=== PATIENT | male | born 1960 | race Two or more races ===

== ENCOUNTER 2021-01-09 05:18 | Emergency (ER) | payer OTHER ==
[2021-01-09] MEDS ORDERED: SODIUM CHLORIDE 0.9% 500 ML INFUS.BAG IV ONE (05:30)
[2021-01-09] MEDS ORDERED: ONDANSETRON 4 MG/2 ML VIAL IVPUSH PRN (05:30)
[2021-01-09] MEDS ORDERED: ONDANSETRON 4 MG/2 ML VIAL IVPUSH ONE (05:31)
[2021-01-09 05:32] VITALS: BMI 25.7
[2021-01-09] MEDS ORDERED: ONDANSETRON 4 MG/2 ML VIAL ONE (05:39)
[2021-01-09 05:48] LABS: BASO % 0.6 % (0-2.0); EOS % 1.4 % (0-4.5); HEMOGLOBIN 13.9 GM/dL (11.7-16.9); LYMPH % 48.4 % (8-40); MCH 26.2 pg (25.7-33.7); MCHC 33.1 g/dl (32.0-35.9); MEAN CELL VOLUME 79.3 fl (80-96); MEAN PLT VOLUME 9.6 fl (7.5-11.1); MONO % 7.2 % (3.8-10.2); NEUT % 42.4 % (42.8-82.8); PLATELET COUNT 218 K/MM3 (134-434); RBC 5.29 M/mm3 (4.00-5.60); RDW 14.5 % (11.9-15.9); WHITE BLOOD COUNT 8.2 K/mm3 (4.0-10.0)
[2021-01-09 06:15] LABS: CHLORIDE 107 mmol/L (98-107); POTASSIUM 4.4 mmol/L (3.5-5.1); SODIUM 137 mmol/L (136-145)
[2021-01-09 06:18] LABS: ALBUMIN 3.7 g/dl (3.4-5.0); ANION GAP 7 MMOL/L (8-16); BLOOD UREA NITROGEN 22.4 mg/dL (7-18); CO2 23 mmol/L (21-32); GLUCOSE,RANDOM 109 mg/dL (74-106); LIPASE 95 U/L (73-393)
[2021-01-09 06:19] LABS: MAGNESIUM 2.2 mg/dL (1.8-2.4)
[2021-01-09 06:21] LABS: SGOT/AST 39 U/L (15-37); SGPT/ALT 42 U/L (13-61)
[2021-01-09 06:23] LABS: BILIRUBIN,TOTAL 0.4 mg/dL (0.2-1); TOT PROT 7.4 g/dl (6.4-8.2)
[2021-01-09 06:24] LABS: ALK PHOS 88 U/L (45-117)
[2021-01-09] MEDS ORDERED: SODIUM CHLORIDE 0.9% 1000 ML INFUS.BAG IV ONE (10:42)
[2021-01-09] MEDS ORDERED: METOCLOPRAMIDE HCL INJECTION 10 MG/2 ML VIAL IVPB ONE (10:42)
[2021-01-09 10:54] VITALS: BP 199/110; PULSE 69; TEMP 98.5
== END 2021-01-09 11:44 | disposition home or self-care (01) ==
LOC: JER 05:18
PROC: 3E033GC Introduction of Other Therapeutic Substance into Peripheral Vein, Percutaneous Approach (ICD-10-PCS; principal; 2021-01-09)
DX: R11.2 Nausea with vomiting, unspecified (principal)
CPT/HCPCS: 36415; 74177-TC; 80053; 80307; 82550; 82553; 83605; 83690; 83735; 84484; 85025; 93005; 93010; 99285-25; Q9967

== ENCOUNTER 2024-09-12 07:15 | Inpatient (IN) | payer OTHER ==
[2024-09-12 09:27] LABS: INR 1.02 (0.83-1.09); PROTHROMBIN TIME (PATIENT) 11.5 SEC (9.7-13.0)
[2024-09-12 09:29] LABS: BASO % 0.6 % (0-2.0); EOS % 0.6 % (0-4.5); HEMATOCRIT 41.9 % (35.4-49); HEMOGLOBIN 13.4 GM/dL (11.7-16.9); LYMPH % 26.7 % (8-40); MCH 26.2 pg (25.7-33.7); MEAN CELL VOLUME 81.6 fl (80-96); MEAN PLT VOLUME 10.6 fl (7.5-11.1); MONO % 8.6 % (3.8-10.2); NEUT % 63.5 % (42.8-82.8); PLATELET COUNT 211 10^3/uL (134-434); RBC 5.13 M/mm3 (4.00-5.60); RDW 13.7 % (11.9-15.9); WHITE BLOOD COUNT 5.5 K/mm3 (4.0-10.0)
[2024-09-12 09:30] LABS: ACTIVATED PTT 35.4 SECONDS (25.2-36.5)
[2024-09-12 09:37] LABS: MAGNESIUM 2.3 mg/dL (1.8-2.4)
[2024-09-12 09:39] LABS: ALBUMIN 3.3 g/dl (3.4-5.0); BLOOD UREA NITROGEN 26.8 mg/dL (7-18); CALCIUM 9.3 mg/dL (8.5-10.1)
[2024-09-12 09:44] LABS: BILIRUBIN,TOTAL 0.5 mg/dL (0.2-1); TOT PROT 6.6 g/dl (6.4-8.2)
[2024-09-12 09:45] LABS: N-TERMINAL BNP 8546.4 pg/ml (5-125)
[2024-09-12] MEDS ORDERED: CEFTRIAXONE 1 G/50 ML PREMIX 50 ML IVPB ONE (11:25)
[2024-09-12] MEDS ORDERED: AZITHROMYCIN IVPB 500 MG/250 ML BAG IVPB ONE (11:26)
[2024-09-12] MEDS: CEFTRIAXONE 1,000 MG in DEXTROSE 5%-WATER - 50 ML IVPB ONE (11:29)
[2024-09-12] MEDS: AZITHROMYCIN IVPB 500 MG in DEXTROSE 5%-WATER - 250 ML IVPB ONE (11:59)
[2024-09-12] MEDS ORDERED: HEPARIN NA (PORCINE) 5,000 UNITS/ML 1ML VIAL ONE (14:23)
[2024-09-12] MEDS: HEPARIN NA (PORCINE) 5,000 UNITS/ML 1ML VIAL SQ SCH (14:31)
[2024-09-12 15:10] LABS: HIV INTERPRETATION NEGATIVE (NEGATIVE)
[2024-09-12] MEDS: FUROSEMIDE 40 MG/4 ML INJECTABLE VIAL IVPUSH ONE (15:44)
[2024-09-12] MEDS: LABETALOL HCL 5 MG/1 ML (100MG/20 ML VIAL) IVPUSH ONE ×2 (15:50→21:04)
[2024-09-12] MEDS: LABETALOL HCL 20 MG/4 ML VIAL IVPUSH ONE ×2 (15:53→21:18)
[2024-09-12 16:45] VITALS: BMI 23.8
[2024-09-13] MEDS: LABETALOL HCL 100 MG TABLET (FP) PO ONE (00:39)
[2024-09-13] MEDS: LABETALOL HCL 5 MG/1 ML (100MG/20 ML VIAL) IVPUSH ONE (03:41)
[2024-09-13] MEDS: amLODIPine BESYLATE 10 MG TABLET (FP) PO ONE (06:18)
[2024-09-13 07:04] LABS: HEMATOCRIT 39.8 % (35.4-49); HEMOGLOBIN 12.6 GM/dL (11.7-16.9); MCHC 31.8 g/dl (32.0-35.9); MEAN CELL VOLUME 81.9 fl (80-96); MEAN PLT VOLUME 10.6 fl (7.5-11.1); PLATELET COUNT 200 10^3/uL (134-434); RBC 4.85 M/mm3 (4.00-5.60); RDW 13.9 % (11.9-15.9)
[2024-09-13 07:23] LABS: POTASSIUM 3.5 mmol/L (3.5-5.1)
[2024-09-13 07:35] LABS: BLOOD UREA NITROGEN 21.3 mg/dL (7-18); MAGNESIUM 2.2 mg/dL (1.8-2.4)
[2024-09-13 07:39] LABS: PHOSPHOROUS 3.9 mg/dL (2.5-4.9)
[2024-09-13 07:40] LABS: BILIRUBIN,TOTAL 0.6 mg/dL (0.2-1); TOT PROT 5.9 g/dl (6.4-8.2)
[2024-09-13] MEDS: FUROSEMIDE 40 MG/4 ML INJECTABLE VIAL IVPUSH SCH (10:40)
[2024-09-13] MEDS: LOSARTAN POTASSIUM 50 MG TABLET PO SCH (10:40)
[2024-09-13] MEDS: LABETALOL HCL 200 MG TABLET (FP) PO SCH (10:40)
[2024-09-13] MEDS: PANTOPRAZOLE 40 MG TABLET PO SCH (12:03)
[2024-09-13 14:17] LABS: PH,URINE 6.5 (5.0-8.0); URINE APPEARANCE CLEAR; URINE BILIRUBIN NEGATIVE (NEGATIVE); URINE COLOR YELLOW; URINE GLUCOSE (UA) NEGATIVE (NEGATIVE); URINE KETONE NEGATIVE (NEGATIVE); URINE LEUK ESTERASE NEGATIVE (NEGATIVE); URINE NITRITE NEGATIVE (NEGATIVE); URINE PROTEIN NEGATIVE (NEGATIVE); URINE UROBILINOGEN 0.2 mg/dL (0.2-1.0)
[2024-09-13] MEDS: CEFTRIAXONE 1 G/50 ML PREMIX 50 ML IVPB SCH (19:07)
[2024-09-13] MEDS: hydrALAZINE HCL 20 MG/ML VIAL IVPUSH PRN (20:07)
[2024-09-13] MEDS: DOXYCYCLINE INJECTION 100 MG in DEXTROSE 5%-WATER 100 ML IVPB SCH (21:33)
[2024-09-13] MEDS: CARVEDILOL 25 MG TABLET (FP) PO SCH (21:34)
[2024-09-14] MEDS: ACETAMINOPHEN 500 MG TABLET (FP) PO ONE (07:12)
[2024-09-14 07:30] LABS: BASO % 0.4 % (0-2.0); EOS % 2.8 % (0-4.5); HEMATOCRIT 41.2 % (35.4-49); HEMOGLOBIN 13.5 GM/dL (11.7-16.9); LYMPH % 34.7 % (8-40); MCH 26.4 pg (25.7-33.7); MCHC 32.7 g/dl (32.0-35.9); MEAN CELL VOLUME 80.7 fl (80-96); MEAN PLT VOLUME 10.7 fl (7.5-11.1); MONO % 11.2 % (3.8-10.2); NEUT % 50.9 % (42.8-82.8); PLATELET COUNT 209 10^3/uL (134-434); RBC 5.11 M/mm3 (4.00-5.60); RDW 13.9 % (11.9-15.9); WHITE BLOOD COUNT 5.2 K/mm3 (4.0-10.0)
[2024-09-14 07:51] LABS: POTASSIUM 3.5 mmol/L (3.5-5.1)
[2024-09-14 08:00] LABS: MAGNESIUM 2.1 mg/dL (1.8-2.4)
[2024-09-14 08:03] LABS: CREATININE 1.9 mg/dL (0.55-1.3); PHOSPHOROUS 3.3 mg/dL (2.5-4.9)
[2024-09-14 08:05] LABS: BILIRUBIN,TOTAL 0.6 mg/dL (0.2-1)
[2024-09-14] MEDS: FUROSEMIDE 40 MG TABLET (FP) PO SCH (09:59)
[2024-09-14] MEDS: hydrALAZINE HCL 50 MG TABLET (FP) PO SCH (13:19)
[2024-09-15] MEDS: ACETAMINOPHEN 500 MG TABLET (FP) PO ONE (05:35)
[2024-09-15 07:47] LABS: BASO % 0.6 % (0-2.0); EOS % 1.3 % (0-4.5); HEMATOCRIT 46.5 % (35.4-49); HEMOGLOBIN 14.9 GM/dL (11.7-16.9); LYMPH % 30.6 % (8-40); MCH 26.3 pg (25.7-33.7); MEAN CELL VOLUME 82.4 fl (80-96); MEAN PLT VOLUME 10.6 fl (7.5-11.1); MONO % 8.2 % (3.8-10.2); NEUT % 59.3 % (42.8-82.8); PLATELET COUNT 245 10^3/uL (134-434); RBC 5.65 M/mm3 (4.00-5.60); WHITE BLOOD COUNT 6.5 K/mm3 (4.0-10.0)
[2024-09-15 08:07] LABS: CALCIUM 9.8 mg/dL (8.5-10.1)
[2024-09-15 08:08] LABS: ALBUMIN 3.5 g/dl (3.4-5.0); BLOOD UREA NITROGEN 28.1 mg/dL (7-18); MAGNESIUM 2.2 mg/dL (1.8-2.4)
[2024-09-15 08:10] LABS: CREATININE 2.1 mg/dL (0.55-1.3)
[2024-09-15 08:11] LABS: PHOSPHOROUS 3.7 mg/dL (2.5-4.9)
[2024-09-15 08:12] LABS: BILIRUBIN,TOTAL 0.6 mg/dL (0.2-1); TOT PROT 6.7 g/dl (6.4-8.2)
[2024-09-15] MEDS: SPIRONOLACTONE 25 MG TABLET PO SCH (09:55)
[2024-09-15 15:10] VITALS: BP 148/90; PULSE 70; RESP 18; TEMP 97.9
[2024-09-17 16:08] LABS: C-ANCA <1:20 titer (Neg:<1:20)
[2024-09-17 19:06] LABS: ANTIGLOMERULAR BASEMENT MEN.AB <0.2 units (0.0-0.9)
== END 2024-09-15 16:27 | disposition home or self-care (01) | DRG 194 ==
LOC: JER 07:15 → JERBED 11:04 → OBSVTOIN 13:16 → J4W 15:01
PROVIDERS: ADMIT Internal Medicine; ATTEND Internal Medicine
DX: I11.0 Hypertensive heart disease with heart failure (principal); J18.9 Pneumonia, unspecified organism; I50.21 Acute systolic (congestive) heart failure; I16.1 Hypertensive emergency; I42.6 Alcoholic cardiomyopathy; F10.20 Alcohol dependence, uncomplicated; R74.01 Elevation of levels of liver transaminase levels; E78.5 Hyperlipidemia, unspecified
CPT/HCPCS: 0241U-QW; 36415; 71045-TC-FY; 71046-TC-FY; 76705-TC; 80053; 80061; 81003; 82570; 82728; 83036; 83516; 83520; 83540; 83550; 83735; 83880; 84100; 84155; 84165; 84300; 84443; 84484; 85025; 85027; 85610; 85730; 86038; 86160; 86225; 86256; 86803; 87389; 87899; 93005; 93010; 93306-TC; 97116-GP; 97161-GP; 99285-25; G0378; J1644

== ENCOUNTER 2025-01-04 11:37 | Emergency (ER) | payer OTHER ==
[2025-01-04 11:46] VITALS: TEMP 98.7; BMI 25.0
[2025-01-04 12:13] VITALS: PULSE 74; RESP 16
[2025-01-04 12:38] LABS: ABSOLUTE IMMATURE GRANULOCYTES 0.01 x10^3/uL (0.0-0.031); BASOPHILS # 0.03 x10^3/uL (0.01-0.08); HEMATOCRIT 40.8 % (40.1-51.0); HEMOGLOBIN 12.7 g/dL (13.7-17.5); MCHC 31.1 g/dl (32.3-36.5); MEAN CELL VOLUME 81.3 fl (79.0-92.2); MEAN PLT VOLUME 11.9 fl (9.4-12.4); MONOCYTE # 0.52 x10^3/uL (0.30-0.82); MONOCYTE % 9.1 % (5.3-12.2); PLATELET COUNT # 205 x10^3/uL (163-337); RDW 14.5 % (12.2-16.4)
[2025-01-04 12:45] LABS: INR 1.06 (0.83-1.09); PROTHROMBIN TIME (PATIENT) 11.6 SEC (9.7-13.0)
[2025-01-04 12:48] LABS: ACTIVATED PTT 34.4 SECONDS (25.2-36.5)
[2025-01-04 12:56] LABS: POTASSIUM 4.4 mmol/L (3.5-5.1)
[2025-01-04 12:58] LABS: CALCIUM 9.2 mg/dL (8.5-10.1)
[2025-01-04 12:59] LABS: ALBUMIN 3.3 g/dl (3.4-5.0); BLOOD UREA NITROGEN 22.2 mg/dL (7-18); MAGNESIUM 2.2 mg/dL (1.8-2.4)
[2025-01-04 13:02] LABS: CREATININE 1.6 mg/dL (0.55-1.3)
[2025-01-04 13:03] LABS: BILIRUBIN,TOTAL 0.6 mg/dL (0.2-1); TOT PROT 6.6 g/dl (6.4-8.2)
[2025-01-04 13:07] LABS: N-TERMINAL BNP 1518.2 pg/ml (5-125)
[2025-01-04 13:26] VITALS: BP 175/102
[2025-01-04 13:54] LABS: HIV INTERPRETATION NEGATIVE (NEGATIVE)
== END 2025-01-04 14:41 | disposition home or self-care (01) ==
LOC: JER 11:37
DX: R07.9 Chest pain, unspecified (principal)
CPT/HCPCS: 0241U-QW; 36415; 71045-TC-FY; 80053; 83735; 83880; 84484; 85025; 85610; 85730; 86803; 87389; 93005; 93010; 99285-25